=== PATIENT | male | born 1975 | race Native Hawaiian/Other Pacific Islander ===

== ENCOUNTER 2019-06-26 15:52 | Outpatient (CLI) | payer OTHER | END 2019-06-26 20:37 | disposition home or self-care (01) | LOC: RAD 15:52 | DX: R07.9 Chest pain, unspecified (principal); I25.84 Coronary atherosclerosis due to calcified coronary lesion ==

== ENCOUNTER 2021-03-27 18:30 | Emergency (ER) | payer OTHER ==
[~2021-03-27] VITALS: Ht 182.9 cm; Wt 111.6 kg
[2021-03-27 19:27] LABS: PLATELET COUNT 138 K/uL (142-355)
[2021-03-27 19:28] LABS: POTASSIUM 3.8 mmol/L (3.6-5.2); SODIUM 139 mmol/L (136-145)
[2021-03-27 19:35] LABS: PARTIAL THROMBOPLASTIN TIME 28.2 SECONDS (24.5-33.6)
[2021-03-27 20:25] VITALS: BP 153/83; TEMP 98.4
== END 2021-03-27 20:25 | disposition home or self-care (01) ==
LOC: ED 18:30
PROVIDERS: Hospitalist
DX: U07.1 COVID-19 (principal); J06.9 Acute upper respiratory infection, unspecified
CPT/HCPCS: 36415; 36600; 80053; 82550; 82805; 83880; 84484; 85007; 85027; 85610; 85730; 93005; 96360; 96375; 99284; J0360; J1100; J2405